=== PATIENT | male | born 2000 | race Caucasian/White ===

== ENCOUNTER 2020-10-29 19:09 | Emergency (ER) | payer BC, OTHER ==
[2020-10-29] MEDS ORDERED: NAPROXEN500 MG PO (20:51)
[2020-11-10] MEDS ORDERED: CLARITIN10 MG PO (07:04)
== END 2020-10-29 21:00 | disposition home or self-care (01) ==
LOC: ER1 19:09
DX: S02.2XXA Fracture of nasal bones, initial encounter for closed fracture (principal); W22.8XXA Striking against or struck by other objects, initial encounter; Y92.830 Public park as the place of occurrence of the external cause
CPT/HCPCS: 70160; 99283

== ENCOUNTER → 2020-11-10 | Day surgery (SDC) | payer BC, OTHER ==
[~2020-11-10] MED LIST: CLARITIN10 MG PO; NAPROXEN500 MG PO
== END | disposition home or self-care (01) ==
LOC: OR 06:31
PROVIDERS: Otolaryngology
PROC: 0NSBXZZ Reposition Nasal Bone, External Approach (ICD-10-PCS; principal; 2020-11-10 07:30)
DX: S02.2XXA Fracture of nasal bones, initial encounter for closed fracture (principal); J34.2 Deviated nasal septum; F17.220 Nicotine dependence, chewing tobacco, uncomplicated; J34.3 Hypertrophy of nasal turbinates; Z79.899 Other long term (current) drug therapy; Z20.822 Contact with and (suspected) exposure to COVID-19; W55.12XA Struck by horse, initial encounter
CPT/HCPCS: J0690; J1100; J2001; J2250; J2405; J2704; J3010; J7120; U0003

== ENCOUNTER → 2021-09-12 | Outpatient (CLI) | payer OTHER ==
[2021-09-12 15:15] LABS: BUN/CREATININE RATIO 17 (0-10)
[2021-09-14 07:09] LABS: CREATININE, URINE 82.1 mg/dL
[2021-09-14 07:10] LABS: MICROALB/CREAT RATIO 8 mg/g creat
== END ==
LOC: US 13:11
PROVIDERS: Internal Medicine Nephrology
DX: N17.9 Acute kidney failure, unspecified (principal)
CPT/HCPCS: 36415; 80053; 81001; 82043; 82570; 84156